=== PATIENT | male | born 1995 | race Hispanic/Latino ===

== ENCOUNTER 2017-12-14 14:45 | Emergency (ER) | payer SELFPAY ==
[~2017-12-14] VITALS: Ht 190.5 cm; Wt 77.3 kg
[2017-12-14 15:20] LABS: HEMATOCRIT 46.6 % (39.0-50.0); HEMOGLOBIN 15.9 g/dl (14.0-18.0); IMMATURE GRANULOCYTES 0.2 % (0.0-5.0); MEAN CELL VOLUME 87.8 fL CALC (80.0-100.0); MEAN CORPUSCULAR HGB 29.9 pG CALC (26.0-32.0); MEAN CORPUSCULAR HGB CONC 34.1 g/L CALC (32.0-36.0); NEUT# 8.45 thou/uL (1.82-7.42); RED BLOOD COUNT 5.31 mill/uL (4.70-6.10)
[2017-12-14 15:31] LABS: ANION GAP 15 (6-22 (CALC)); BUN 12 mg/dL (9-20); BUN/CREATININE RATIO 14 (12-20 (CALC)); CARBON DIOXIDE 28 mmol/l (22-30); CHLORIDE 100 mmol/l (95-108); CREATININE 0.9 mg/dL (0.7-1.3); GFR > 60 ML/MIN (>=60 (CALC)); GFR FOR AFR.AMER. > 60 ML/MIN (>=60 (CALC)); POTASSIUM 3.8 mmol/l (3.5-5.1); SODIUM 139 mmol/l (137-146)
[2017-12-14 17:05] VITALS: BP 114/75
[2017-12-14] MEDS ORDERED: HYDROCO/APAP1 TA9 PO (17:06)
== END 2017-12-14 17:16 | disposition home or self-care (01) | DRG 159 ==
LOC: ED 14:45
PROVIDERS: Family Medicine
DX: S02.69XA Fracture of mandible of other specified site, initial encounter for closed fracture (principal); F17.210 Nicotine dependence, cigarettes, uncomplicated; V18.0XXA Pedal cycle driver injured in noncollision transport accident in nontraffic accident, initial encounter; Y93.55 Activity, bike riding